=== PATIENT | female | born 1985 | race African-American/Black ===

== ENCOUNTER 2017-02-08 08:07 | Emergency (ER) | payer MEDICAID, OTHER ==
[~2017-02-08] VITALS: Ht 170.2 cm; Wt 61.0 kg
[~2017-02-08 08:07] MED LIST: NO MEDS
[2017-02-08 10:26] LABS: HEMOGLOBIN. 15.2 g/dL (12.0-16.0); MEAN CORPUSCULAR HEMOGLOBIN 30.7 pg (28.0-32.0); MEAN CORPUSCULAR HGB CONC 33.7 g/dL (31.0-37.0); MEAN CORPUSCULAR VOLUME 91.2 fL (81.0-99.0); MEAN PLATELET VOLUME 8.6 fl (7.4-10.4); PLATELET 271 x1000/uL (130-400); RED BLOOD CELL COUNT 4.93 mill/uL (4.2-5.4); RED CELL DISTRIBUTION WIDTH 14.2 % (11.6-14.6); WHITE BLOOD COUNT 6.4 x1000/uL (4.5-11.0)
[2017-02-08 10:27] LABS: DIFFERENTIAL COMMENT 1
[2017-02-08 10:29] LABS: CHLORIDE 104 mEq/L (98-107); INDEX HEMOLYSI 1 (1-3); INDEX ICTERIC 2 (1-4); INDEX LIPEMIC 1 (1-3)
[2017-02-08 10:35] LABS: ALANINE AMINOTRANSFERASE 21 IU/L (13-61); ALBUMIN 4.7 g/dL (3.4-5.0); ANION GAP 12; CALCIUM 9.6 mg/dL (8.5-10.1); CARBON DIOXIDE 27 mEq/L (21-32); UREA NITROGEN BLOOD 8 mg/dL (7-21); eGFR > 60 mL/min (>60)
[2017-02-08] MEDS ORDERED: KETOROLAC 30MG/ML VIAL IV ONE (11:00)
[2017-02-08 11:23] LABS: PLATELET ESTIMATE NORMAL
[2017-02-08] MEDS ORDERED: IOHEXOL-300 100 ML BOTTLE ONE (13:54)
[2017-02-08] MEDS ORDERED: SODIUM CHLORIDE 0.9% 10ML VIAL ONE (13:54)
[2017-02-08 14:02] VITALS: BP 110/69
== END 2017-02-08 15:11 | disposition home or self-care (01) ==
LOC: ER 09:28
DX: R22.1 Localized swelling, mass and lump, neck (principal); M54.2 Cervicalgia
CPT/HCPCS: 36415; 70491; 80053; 81025; 85025; 96374; 99285; A4216; J1885; Q9967; Z7610